=== PATIENT | male | born 2000 | race African-American/Black ===

== ENCOUNTER 2022-08-06 00:43 | Emergency (ER) | payer BC, MEDICAID, SELFPAY ==
[2022-08-06 01:14] VITALS: BP 126/64; PULSE 69; RESP 18; TEMP 36.6; O2SAT 100
[2022-08-06 01:21] LABS: Appearance Urine Clear (Clear); Bilirubin Urine Negative (Negative); Blood Urine Negative (Negative); Color Urine Yellow (Yellow); Glucose Urine UA Negative (Negative); Ketones Urine Negative (Negative); Leukocyte Esterase Ur Trace LEU/UL (Negative); Nitrate Urine Negative (Negative); Protein Urine Negative (Negative); Specific Grav Ur 1.025 (1.001-1.035); Urobilinogen Urine 0.2 mg/dL (<2.0); pH Urine 6.5 (5.0-9.0)
[2022-08-06 01:26] LABS: Mucus Urine Rare /lpf; Squamous Epithelial Cell Urine Rare /hpf (Few); WBC Urine 31-50 /hpf
[2022-08-06 01:27] LABS: Add Urine Microscopic? YES
== END 2022-08-06 01:00 | disposition left against medical advice (07) ==
PROVIDERS: Emergency Provider Emergency Medicine
DX: N48.89 Other specified disorders of penis (principal)
CPT/HCPCS: 81001; 87086; 87147; 87181; 87186; 99199